=== PATIENT | female | born 1955 | race Caucasian/White ===

== ENCOUNTER → 2022-05-10 | Outpatient (CLI) | payer MEDICARE ==
--- NOTE | 2022-05-10 12:15 | DIREP ---
PROCEDURE:US ABDOMEN LIMITED (SINGLE ORGAN - QUAD) COMPARISON:[facility], CT, CT ABD/PELVIS W/O, 11/25/2014, 09:13 AM. INDICATIONS:RUQ PAIN TECHNIQUE:High resolution sonographic examination was performed of the abdomen. FINDINGS: PANCREAS:Visualized portions of the pancreatic head and body appear unremarkable. The pancreatic tail is partially obscured by bowel gas shadowing. LIVER:Enlarged. Increased hepatic echotexture with poor sonographic penetration consistent with hepatic steatosis. Hepatic detail is significantly limited. Hepatopetal flow in the portal vein. GALLBLADDER:There is sludge present within the dependent portion of the gallbladder. No evidence for gallbladder wall thickening or pericholecystic fluid. BILIARY:There is no biliary ductal dilatation. RIGHT KIDNEY:Normal. No hydronephrosis. OTHER:Negative. No ascites is identified. CBD:0.6 cm GALLBLADDER WALL: 0.2 cm LIVER: 19.0 cm in length. RIGHT KIDNEY: 11.2 x 4.3 x 6.6 cm CONCLUSION: 1. Sludge within the gallbladder. No stones identified. 2. Hepatic steatosis. Dictated by: RADHA Physician on 05/10/2022 at 10:57 AM ac
== END | disposition home or self-care (01) ==
LOC: RAD 08:20
PROVIDERS: ATTEND Nurse Practitioner Family
DX: K76.0 Fatty (change of) liver, not elsewhere classified (principal); R10.11 Right upper quadrant pain
CPT/HCPCS: 76705; 93976